=== PATIENT | female | born 1975 | race Caucasian/White ===

== ENCOUNTER 2018-12-14 05:30 | Day surgery (SDC) | payer MEDICAID ==
[2018-12-13 17:59] VITALS: BP 128/69
[2018-12-13 18:02] LABS: BASOPHILS % (AUTO) 0.3 % (0.0-5.0); EOSINOPHILS % (AUTO) 0.8 % (0.0-8.0); HEMATOCRIT 34.8 % (36-48); LYMPHOCYTES % (AUTO) 23.1 % (21.0-51.0); MEAN CORPUSCULAR HEMOGLOBIN 27.2 pg (27.0-33.0); MEAN CORPUSCULAR HGB CONC 33.5 g/dL (32.0-36.0); MONOCYTES % (AUTO) 5.2 % (3.0-13.0); NEUTROPHILS % (AUTO) 70.6 % (40.0-77.0); PLATELET COUNT (AUTO) 233 K/uL (130-400); RED BLOOD CELL COUNT(AUTO) 4.29 MIL/uL (4.00-5.50); RED CELL DISTRIBUTION WIDTH 15.3 % (11.0-15.5); WHITE BLOOD COUNT (AUTO) 8.7 K/uL (4.8-10.8)
--- NOTE | 2018-12-13 18:20 | NUR ---
HEART INFORMED DR. CORTEZ OF PTS HX OF PAROXYSMAL A FIB. PT ASYMPTOMATIC. HAS NOT SEEN MOBILE PHLEBOTOMIST SINCE 2017. NO ORDERS RECEIVED. PROCEED WITH PLANNED PROCEDURE.
[2018-12-14] VITALS (14 sets, daily range): BP systolic 127–140; BP diastolic 66–83
[~2018-12-14] VITALS: Ht 170.2 cm; Wt 95.6 kg
[~2018-12-14 05:30] MED LIST: BACL10TA PO; CALC-866 PO; DIPH50 PO; IRON PO; PANT40TA25 PO; PYRI100T2 PO; QUET200T58 PO; SERT100T12 PO; VITA-300 PO; VITA1TAB60 PO; ZINC50TA64 PO; [UNRECOGNIZED DRUG - OTHER] PO
[2018-12-14] MEDS ORDERED: LACTATED RINGERS 1000ML 1,000 ML IV ONE (06:14)
[2018-12-14] MEDS ORDERED: PROPOFOL 10 MG/ML 20ML VIAL IV ONE (06:23)
[2018-12-14] MEDS ORDERED: FENTANYL CITRATE PF 50 MCG/1 ML 2ML VIAL ONE ×2 (06:23→08:23)
[2018-12-14] MEDS ORDERED: LIDOCAINE PF 2% 5ML ABBOJECT ONE (06:23)
[2018-12-14] MEDS ORDERED: STRONG IODINE SOLUTION 30ML BOTTLE ONE (07:25)
[2018-12-14] MEDS ORDERED: ACETIC ACID 0.25% 1,000 ML IRRIG.SOLN ONE (07:25)
[2018-12-14] MEDS ORDERED: DEXAMETHASONE SOD PHOSPHATE 10MG/ML 1ML VIAL ONE (07:38)
[2018-12-14] MEDS ORDERED: ONDANSETRON HCL 4 MG/2 ML VIAL ONE (07:38)
[2018-12-14] MEDS ORDERED: LACTATED RINGERS 1000ML 1,000 ML IV SCH (08:00)
[2018-12-14] MEDS ORDERED: MEPERIDINE-PF 25 MG/ML SYG ONE (08:12)
[2018-12-14] MEDS ORDERED: MORPHINE SULFATE 4 MG/1ML SYG ONE (08:35)
[2019-02-07] MEDS ORDERED: SERT100T12 PO (07:44)
[2019-02-07] MEDS ORDERED: QUET25TA PO (07:44)
== END 2018-12-14 09:50 | disposition home or self-care (01) ==
LOC: DAH 05:30
PROVIDERS: ATTEND Obstetrics & Gynecology
DX: D06.0 Carcinoma in situ of endocervix (principal); Z68.35 Body mass index [BMI] 35.0-35.9, adult; K21.9 Gastro-esophageal reflux disease without esophagitis; Z79.899 Other long term (current) drug therapy; Z98.890 Other specified postprocedural states; Z80.41 Family history of malignant neoplasm of ovary; Z88.0 Allergy status to penicillin; Z88.1 Allergy status to other antibiotic agents
CPT/HCPCS: 36415; 57520; 84703; 85025; 86850; 86900; 86901; 88305; 88307; 88341; 88342; 88360; A4351; A4606; A4930; J1100; J2001; J2175; J2270; J2405; J2704; J3010 ×2; J7120 ×2

== ENCOUNTER → 2020-05-04 | Outpatient (CLI) | payer MEDICAID ==
[~2020-05-04] MED LIST changes: -BACL10TA PO; -CALC-866 PO; -DIPH50 PO; -IRON PO; -PANT40TA25 PO; -PYRI100T2 PO; -QUET200T58 PO; +QUET25TA PO; -VITA-300 PO; -VITA1TAB60 PO; -ZINC50TA64 PO; -[UNRECOGNIZED DRUG - OTHER] PO
--- NOTE | 2020-05-05 01:16 | NUR ---
PROTONIX 40 MG,[id number] Addendum: 05/05/20 at 0119 by WILLIAM MAGALLANES Amended: Links added.
== END | disposition home or self-care (01) ==
LOC: SLP 20:51
PROVIDERS: ATTEND Family Medicine
DX: G47.33 Obstructive sleep apnea (adult) (pediatric) (principal); G47.39 Other sleep apnea; G47.09 Other insomnia
CPT/HCPCS: 95810